=== PATIENT | female | born 1965 | race Caucasian/White ===

== ENCOUNTER 2017-01-10 15:31 | Observation (INO) | payer BC ==
[2017-01-10 16:37] VITALS: BMI 29.6
[2017-01-10 16:44] LABS: #Eosinphils 0.1 thou/uL (0.0-0.7); #Lymphocytes 1.6 thou/uL (1.20-3.40); #Monocytes 0.6 thou/uL (0.11-0.59); #Neutrophils 8.2 thou/uL (1.40-6.50); %Basophils 0.2 % (0.0-1.0); %Eosinophils 1.2 % (0.0-10.0); %Monocytes 5.4 % (0.0-10.0); Hematocrit 40.6 % (36.0-47.0); Mean Platelet Volume 7.1 fL (7.4-10.4); Red Blood Cell (RBC) Count 4.27 mill/uL (4.20-5.40); White Blood Cell (WBC) Count 10.4 thou/uL (4.8-10.8)
[2017-01-10] MEDS ORDERED: Ketorolac Tromethamine 30 MG/ML VIAL IVP PRN (16:54)
[2017-01-10 17:04] LABS: ALT (SGPT) 71 U/L (8-55); AST (SGOT) 35 U/L (5-34); Alkaline Phosphatase 159 U/L (40-150); Anion Gap 13 mmol/L (10-20); BUN (Urea Nitrogen) 18 mg/dL (9.8-20.1); Bilirubin, Total 0.9 mg/dL (0.2-1.2); Calc. Creatinine Clearance 83 mL/min (70-130); Calcium 9.3 mg/dL (7.8-10.44); Carbon Dioxide 24 mmol/L (22-29); Chloride 105 mmol/L (98-107); Estimated GFR-MDRD 58; Globulin 3.1 g/dL (2.4-3.5); Protein, Total 7.2 g/dL (6.0-8.3)
[2017-01-10] MEDS: Sodium Chloride 0.9% 1,000 ML IV SCH (17:26)
--- NOTE | 2017-01-10 18:23 | CT ---
CT ABDOMEN AND PELVIS WITHOUT IV CONTRAST: 01/10/17 HISTORY: Hematuria and bilateral abdominal pain but worse on the left. COMPARISON: None available. FINDINGS: There is decreased attenuation of the majority of the liver suggesting diffuse fatty infiltration wi th areas of relative sparing involving the posterior segment right hepatic lobe and adjacent to the gallbladder. The spleen, pancreas, bilateral adrenal glands, left kidney, and urinary bladder demonstrate a gross ly normal nonenhanced CT appearance. There is mild right hydronephrosis and hydroureter with 3 mm calculus seen in the distal right urete r. The appendix is normal in caliber. The uterus is not visualized consistent with reported history of hysterectomy. IMPRESSION: 1. Partially obstructing distal right ureteral calculus measuring approximately 3 mm. 2. Fatty infiltration of the liver with areas of fatty sparing. 3. Hysterectomy. 4. No CT evidence of appendicitis. POS: TRACE
--- NOTE | 2017-01-10 20:11 | HP ---
JEWEL García, dictating for Steve Ram M.D. DATE OF ADMISSION: 01/10/2017 REASON FOR ADMISSION: Hematuria and abdominal pain. HISTORY OF PRESENT ILLNESS: This is a 51-year-old female, who came to the office with a few day his tory of vaginal pressure. She did not have any dysuria or see any bladder prolapse when she urinate d. Right before she came to our office, she began having a right quadrant and right flank pain. We checked the UA, which showed large amounts of blood. It was felt she did have possible kidney ston e. She also admits to nausea and emesis before she came to the office. She denies any chest, arm o r back pain. She also denies any syncopal or near syncopal episode. PAST MEDICAL HISTORY: Unremarkable. ALLERGIES: None. MEDICATIONS: None. FAMILY HISTORY: Noncontributory. SOCIAL HISTORY: She does not smoke or drink alcohol. REVIEW OF SYSTEMS: General: No weight gain, weight loss, weakness, fatigue, fever or chills. HEEN T: No diplopia, amaurosis fugax, tinnitus, sore throat or hoarseness. Cardiovascular: No chest, a rm or back pain. Pulmonary: No PE, cough, or hemoptysis. Gastrointestinal: See history of presen t illness. Genitourinary: No dysuria, nocturia, oliguria or polyuria. Endocrine: No polyphagia, polydipsia or heat or cold intolerance. Musculoskeletal: No lupus, arthralgia, or myopathy. Neuro logic: No history of TIA or seizure. All systems are negative. PHYSICAL EXAMINATION: GENERAL: This is a pleasant female, who appears to be in mild distress secondary to pain. VITAL SIGNS: Blood pressure 120/72, pulse 80, respiratory rate 16, she is afebrile. NECK: Supple with no increased JVP or carotid bruit. Carotid had good upstroke with no thyromegaly . COR: Regular rate and rhythm with normal first and second heart sounds. No murmur, S3, S4, or thri ll. CHEST: Symmetrical. Clear to auscultation and percussion. ABDOMEN: Soft, nontender. She had no CVA tenderness. She had normoactive bowel sounds. No bruit or organomegaly. EXTREMITIES: No edema or cyanosis. She had palpable pedal and femoral pulses. SKIN: There is no evidence of ulceration lesion, or rash. NEUROLOGIC: She is awake, alert, and oriented to person, place, and time. LABORATORY DATA: Her UA showed large amount of blood. ASSESSMENT: 1. Rule out kidney stone. 2. Nausea and vomiting secondary to above. PLAN: 1. The patient will be admitted where IV fluids will be initiated. 2. We will Zofran for nausea and give Toradol for pain. We will also give Bentyl 10 mg q.i.d. 3. We will begin clear liquid diet. 4. We will start IV fluids. 5. We will check a CBC, UA and CMP. 6. We will order CT of the abdomen and pelvis stone protocol STAT. The patient verbalized understanding and all questions answered to satisfaction.
[2017-01-10] MEDS ORDERED: Morphine Sulfate 2 MG/ML SYRINGE SLOW IVP PRN (21:33)
[2017-01-10] MEDS: Ondansetron HCl/PF 4 MG/2 ML Vial SLOW IVP PRN (22:00)
[2017-01-10 22:35] LABS: Bilirubin Negative (Negative); Glucose, Urine (Dipstick) Negative (Negative); Ketone, Urine Negative (Negative); Nitrite Negative (Negative); Protein, Urine (Dipstick) Negative (Neg-Trace); Urobilinogen 0.2 mg/dL (0.2-1.0)
[2017-01-10 22:39] LABS: Bacteria/HPF None Seen HPF (None Seen); Blood, Urine Trace (Negative); Hyaline Casts/LPF 0-3 HYALINE CAST LPF (0-3 Hyaline); RBC/HPF 0-3 HPF (0-3); Squamous Epithelial None Seen HPF (0-3); WBC/HPF None Seen HPF (0-3)
[2017-01-11] MEDS: Sodium Chloride 0.9% 1,000 ML IV SCH ×2 (04:19→14:12)
[2017-01-11] MEDS: Phenazopyridine HCl 97.5 MG TABLET PO SCH ×2 (09:53→15:06)
[2017-01-11] MEDS: Ondansetron HCl/PF 4 MG/2 ML Vial SLOW IVP PRN (14:12)
[2017-01-11 15:34] VITALS: BP 118/58; TEMP 98.5
== END 2017-01-11 17:59 | disposition home or self-care (01) ==
LOC: 2SW 15:31
PROVIDERS: ADMIT Specialist; ATTEND Specialist
DX: R31.9 Hematuria, unspecified (principal); R10.9 Unspecified abdominal pain; R11.2 Nausea with vomiting, unspecified; N13.2 Hydronephrosis with renal and ureteral calculous obstruction; Z90.710 Acquired absence of both cervix and uterus
CPT/HCPCS: 36416; 74176; 80053; 81001; 85025; 96361; 96374; 96375; 96376; G0378; J1885; J1956; J2270; J2405